=== PATIENT | female | born 1945 | race Caucasian/White ===

== ENCOUNTER 2018-12-15 10:50 | Observation (INO) | payer MEDICARE ==
[2018-12-15] MEDS ORDERED: predniSONE 20 MG TAB ONE (11:35)
[2018-12-15 11:56] LABS: #Lymphocytes 0.9 thou/uL (1.20-3.40); #Monocytes 0.5 thou/uL (0.11-0.59); #Neutrophils 7.4 thou/uL (1.40-6.50); %Basophils 0.4 % (0.0-1.0); %Lymphocytes 10.7 % (21.0-51.0); %Monocytes 5.8 % (0.0-10.0); %Neutrophils 83.2 % (42.0-75.0); Hemoglobin 9.4 g/dL (12.0-16.0); Mean Corpuscular HGB CONC 32.4 g/dL (32.0-36.0); Mean Corpuscular Hemoglobin 27.5 pg (27.0-31.0); Mean Corpuscular Volume 84.9 fL (78.0-98.0); Mean Platelet Volume 6.4 fL (7.4-10.4); Platelet Count 210 thou/uL (130-400); RBC Distribution Width 15.1 % (11.5-14.5); Red Blood Cell (RBC) Count 3.42 mill/uL (4.20-5.40); White Blood Cell (WBC) Count 8.9 thou/uL (4.8-10.8)
[2018-12-15 12:01] LABS: Anion Gap 15 mmol/L (10-20); BUN (Urea Nitrogen) 16 mg/dL (9.8-20.1); Calc. Creatinine Clearance 0 mL/min (70-130); Calcium 9.6 mg/dL (7.8-10.44); Carbon Dioxide 27 mmol/L (23-31); Chloride 94 mmol/L (98-107); Estimated GFR-MDRD 63; Glucose 158 mg/dL (83-110); Potassium 3.3 mmol/L (3.5-5.1); Sodium 133 mmol/L (136-145)
[2018-12-15 12:31] LABS: Bilirubin Small (Negative); Blood, Urine Trace (Negative); Clarity Slightly Cloudy (Clear); Glucose, Urine (Dipstick) Negative (Negative); Leukocyte Negative (Negative); Nitrite Negative (Negative); Protein, Urine (Dipstick) 100 mg/dL (Neg-Trace); pH, Urine 5.5 (5.0-9.0)
[2018-12-15 12:34] LABS: Specific Gravity, Urine 1.026 (1.002-1.036)
[2018-12-15 12:40] LABS: Bacteria/HPF 2+ HPF (None Seen); Hyaline Casts/LPF 0-3 HYALINE CAST LPF (0-3 Hyaline); Squamous Epithelial 0-3 HPF (0-3); WBC/HPF 0-3 HPF (0-3)
[2018-12-15] MEDS ORDERED: cefTRIAXone\\ROCEPHIN 1 GM VIAL ONE (12:47)
[2018-12-15] MEDS ORDERED: Sodium Chloride 0.9% 100 ML ONE (12:47)
[2018-12-15] MEDS ORDERED: Oseltamivir 75 MG CAP ONE (12:47)
--- NOTE | 2018-12-15 13:23 | RAD ---
RADIOGRAPH CHEST 2 VIEWS: Date: 12/15/2018 Time: 12:03 p.m. HISTORY: A 73-year-old female with cough. COMPARISON: 05/05/2016 FINDINGS: There is a new finding of infiltrate involving the right upper lobe, probably the anterior segment, i nvolving relatively low attenuation but a wide area. Again noted are the sternotomy wires. No cardi omegaly or pleural effusion. No pneumothorax. IMPRESSION: Evidence for right upper lobe pneumonia. CARL [] POS: STONE
[2018-12-15] MEDS ORDERED: Azithromycin 500 MG VIAL ONE (13:59)
[2018-12-15] MEDS ORDERED: Ondansetron ODT 4 MG TAB SL PRN (18:42)
[2018-12-15] MEDS ORDERED: Acetaminophen 325 MG TAB PO PRN (18:42)
[2018-12-15] MEDS ORDERED: Ondansetron PF 4 MG/2 ML Vial IVP PRN (18:42)
[2018-12-15 18:45] VITALS: BMI 30.2
--- NOTE | 2018-12-15 21:19 | PDOC.FPRHP ---
- History of Present Illness Chief Complaint: cough History of Present Illness: 73yo F with pmh of COPD and CAD presents with 3-4 day hx of worsening cough and fatigue. Denies increased SOB, denies fever/chills. Reports her children have all had the flu. She has had flu shot. Cough is productive of clear sputum. At outside ED CXR showed L upper lobe consolidation and pt tested positive for Flu A. She was given azithromycin, rocephin, prednisone and duonebs and transferred to [facility] for direct admit. ED Course: see hpi - Allergies/Adverse Reactions Allergies Allergy/AdvReac Type Severity Reaction Status Date / Time No Known Allergies Allergy Verified 12/25/16 16:00 - Home Medications Medication Instructions Recorded Confirmed Type Cetirizine HCl [Zyrtec] 10 mg PO DAILY 05/12/13 12/15/18 History Clopidogrel Bisulfate [Plavix] 75 mg PO QAM 01/03/15 12/15/18 History Aspirin [Ecotrin Regular Strength] 325 mg PO QAM 10/27/15 12/15/18 History Citalopram Hydrobromide 40 mg PO QAM 11/15/15 12/15/18 History [Citalopram HBr] Hydrochlorothiazide 25 mg PO QAM 11/15/15 12/15/18 History Atorvastatin Calcium [Lipitor] 20 mg PO HS 04/30/16 12/15/18 History Metoprolol Succinate [Toprol XL] 1 tab PO QAM 04/30/16 12/15/18 History Multivitamin With Minerals [Daily 1 tab PO QAM 04/30/16 12/15/18 History Vitamin Formula-Minerals] Acetaminophen [Acetaminophen 8 1 - 2 mg PO Q6HR 09/24/16 12/15/18 History Hour] Bimatoprost [Lumigan 0.01% Ophth 1 drop L EYE HS 09/24/16 12/15/18 History Soln] Levothyroxine Sodium [Tirosint] 125 mcg PO DAILY 09/24/16 12/15/18 History Vitamin B Complex 1 cap PO DAILY 09/24/16 12/15/18 History Acetaminophen With Codeine 1 tablet PO Q6HR PRN 12/15/18 12/15/18 History [Tylenol with Codeine #3] Carboxymethylcellulose Sodium 1 - 2 drop L EYE ASDIR PRN 12/15/18 12/15/18 History [Thera Tears] Dorzolamide/Timolol/PF [Cosopt Pf 1 each L EYE BID 12/15/18 12/15/18 History Eye Drops] Fluorometholone [FML Forte 0.25% 1 drop L EYE DAILY 12/15/18 12/15/18 History Ophth Susp] Latanoprost [Latanoprost 0.05% 1 drop L EYE HS 12/15/18 12/15/18 History Ophth] Melatonin/Pyridoxine [Melatonin 5 1 each PO HS PRN 12/15/18 12/15/18 History mg Tablet] Netarsudil Mesylate [Rhopressa] 1 drop L EYE HS 12/15/18 12/15/18 History metFORMIN [Glucophage] 500 mg PO BID-WM 12/15/18 12/15/18 History - History PMHx:CAD s/p 3 vessel CABG, hypothyroid, HTN, HLD, DM2, COPD PSHx: CABG FHx: COPD Social: 40 pack year smoking hx, social etoh use , denies drugs - Review of Systems General: reports: fatigue. denies: fever/chills Eyes: denies: eye pain, vision changes ENT: denies: nasal congestion, rhinorrhea Respiratory: reports: cough. denies: shortness of breath Cardiovascular: denies: chest pain, palpitation Gastrointestinal: denies: nausea, vomiting Genitourinary: denies: dysuria, polyuria Skin: denies: rashes, lesions Musculoskeletal: denies: pain, tenderness Neurological: denies: syncope, seizure Psychological: denies: anxiety, depression - Vital signs BP: [123/67] HR: [85] RR: [20] Tmax: [99] Pox: [93]% on [ra] Wt: [77kg] - Physical Exam Constitutional: NAD, awake, alert and oriented HEENT: normocephalic and atraumatic, EOMI, grossly normal vision, grossly normal hearing Neck: supple, trachea midline Chest: no-tender to palpation Heart: RRR, normal S1/S2 -Lungs: inspiratory and expiratory crackles at L midlung and apex, mild expiratory wheezing in R lung Abdomen: soft, non-tender Musculoskeletal: normal tone, ROM grossly normal Neurological: no focal deficit, normal sensation Skin: no rash/lesions, good turgor Heme/Lymphatic: no purpura, no petechia Psychiatric: normal mood and affect, good judgment and insight FMR H&P: Results - Labs Result Diagrams: 12/16/18 06:27 12/16/18 06:27 Lab results: WBC 8.9 thou/uL (4.8-10.8) 12/15/18 11:40 Hgb 9.4 g/dL (12.0-16.0) L 12/15/18 11:40 Hct 29.0 % (36.0-47.0) L 12/15/18 11:40 MCV 84.9 fL (78.0-98.0) 12/15/18 11:40 Plt Count 210 thou/uL (130-400) 12/15/18 11:40 Neutrophils % 83.2 % (42.0-75.0) H 12/15/18 11:40 Sodium 133 mmol/L (136-145) L 12/15/18 11:40 Potassium 3.3 mmol/L (3.5-5.1) L 12/15/18 11:40 Chloride 94 mmol/L (98-107) L 12/15/18 11:40 Carbon Dioxide 27 mmol/L (23-31) 12/15/18 11:40 BUN 16 mg/dL (9.8-20.1) 12/15/18 11:40 Creatinine 0.87 mg/dL (0.6-1.1) 12/15/18 11:40 Glucose 158 mg/dL (83-110) H 12/15/18 11:40 Lactic Acid 1.2 mmol/L (0.5-2.2) 12/15/18 11:40 Calcium 9.6 mg/dL (7.8-10.44) 12/15/18 11:40 Urine Ketones 15 mg/dL (Negative) H 12/15/18 12:20 Urine Blood Trace (Negative) H 12/15/18 12:20 Urine Nitrite Negative (Negative) 12/15/18 12:20 Ur Leukocyte Esterase Negative (Negative) 12/15/18 12:20 Urine RBC 4-6 HPF (0-3) 12/15/18 12:20 Urine WBC 0-3 HPF (0-3) 12/15/18 12:20 Ur Squamous Epith Cells 0-3 HPF (0-3) 12/15/18 12:20 Urine Bacteria 2+ HPF (None Seen) H 12/15/18 12:20 FMR H&P: A/P - Problem List (1) CAP (community acquired pneumonia) Current Visit: Yes Status: Acute Code(s): J18.9 - PNEUMONIA, UNSPECIFIED ORGANISM (2) Influenza A Current Visit: Yes Status: Acute Code(s): J10.1 - FLU DUE TO OTH IDENT INFLUENZA VIRUS W OTH RESP MANIFEST (3) CAD (coronary artery disease) Current Visit: Yes Status: Chronic Code(s): I25.10 - ATHSCL HEART DISEASE OF [place] CORONARY ARTERY W/O ANG PCTRS (4) Hypothyroid Current Visit: Yes Status: Chronic Code(s): E03.9 - HYPOTHYROIDISM, UNSPECIFIED (5) DM type 2 (diabetes mellitus, type 2) Current Visit: No Status: Chronic (6) Dyslipidemia Current Visit: No Status: Chronic Code(s): E78.5 - HYPERLIPIDEMIA, UNSPECIFIED (7) HTN (hypertension) Current Visit: No Status: Chronic Code(s): I10 - ESSENTIAL (PRIMARY) HYPERTENSION - Plan CAP A- Imaging showed evidence for L upper lobe consolidation and was consistent with exam. unlikely that this is pneumonia 2/2 influenza infection as onset of symptoms was so recent. LA 1.2 P- Azithromycin and rocephin - f/u BCx - AM CBC - PO hydration - prn O2 Influenza A pneumonia A- positive for Flu A, pt had family contacts who also had flu. She has been vaccinated P- tamiflu COPD exacerbation A- Likely that most of symptoms are due to flu and CAP but pt was mildy wheezing on exam. S/p prednisone today P- PRN duonebs - prednisone 40 mg daily - restart home medications once they are obtained CAD s/p CABG - obtain med list from family in AM and restart home meds HTN - obtain med list from family in AM and restart home meds HLD - obtain med list from family in AM and restart home meds hypothyroid - obtain med list from family in AM and restart home meds DM2 - SSI and accuchecks - obtain med list from family in AM and restart home meds Diet: HH PPx: Lovenox CODE: FULL Dispo: obs, medical FMR H&P: Upper Level - Pertinent history 73 yo WF PMH CAD and extensive smoking history without diagnosis of COPD. Presents with 2-3 day history of productive cough, generalized malaise, and generalized weakness. States she felt normal Friday but began to feel ill on Friday. States she cannot remember exactly when her symptoms started. States she had multiple family members with influenza. ER: Labs, CXR, flu swab. - Pertinent findings Vitals: WNL GEN: Ill appearing but not toxic appearing. CV: RRR, no murmur Pulm: crackles in left and right upper lungs. Skin: warm, moist Labs: influenza A positive, K 3.3 CXR: RUL infiltrate. - Plan Date/Time: 12/15/182115 I, Manpreet Nesbitt MD, have evaluated this patient and agree with findings/plan as outlined by diversity intern resident. Pertinent changes/additions are listed here. 1. Community acquired pneumonia: continue rocephin and azithromycin, PRN oxygen. 2. Influenza A pneumonia: tamiflu 3. COPD exacerbation: PRN duonebs, prednisone 40 mg daily 4. See diversity intern note for management of chronic conditions 5. Diet: HH 6. PPx: Lovenox 7. CODE: FULL Dispo: obs, medical <[address] Villeda. Addendum - Attending - Attending Attestation Date/Time: 12/16/18 1000 I personally evaluated the patient and discussed the management with Dr. Castro yesterday evening. I agree with the History, Examination, Assessment and Plan documented above with any addition or exceptions noted below.
[2018-12-16] MEDS ORDERED: HumaLOG 300 UNITS/3 ML VIAL SC PRN (02:46)
[2018-12-16] MEDS ORDERED: Dextrose 50% Abboject 50 ML SYRINGE SLOW IVP PRN (02:46)
[2018-12-16] MEDS ORDERED: Dextrose 5% in Water 1,000 ML IV PRN (02:46)
[2018-12-16 07:09] LABS: #Eosinphils 0.1 thou/uL (0.0-0.7); #Lymphocytes 0.8 thou/uL (1.20-3.40); #Monocytes 0.4 thou/uL (0.11-0.59); #Neutrophils 3.9 thou/uL (1.40-6.50); %Basophils 0.1 % (0.0-1.0); %Eosinophils 2.7 % (0.0-10.0); %Lymphocytes 14.5 % (21.0-51.0); %Monocytes 8.4 % (0.0-10.0); %Neutrophils 74.4 % (42.0-75.0); Hemoglobin 10.1 g/dL (12.0-16.0); Mean Corpuscular HGB CONC 31.5 g/dL (32.0-36.0); Mean Corpuscular Hemoglobin 27.1 pg (27.0-31.0); Mean Corpuscular Volume 86.1 fL (78.0-98.0); Mean Platelet Volume 7.3 fL (7.4-10.4); Platelet Count 243 thou/uL (130-400); RBC Distribution Width 14.7 % (11.5-14.5); Red Blood Cell (RBC) Count 3.73 mill/uL (4.20-5.40); White Blood Cell (WBC) Count 5.3 thou/uL (4.8-10.8)
[2018-12-16 07:27] LABS: Anion Gap 16 mmol/L (10-20); BUN (Urea Nitrogen) 20 mg/dL (9.8-20.1); Calc. Creatinine Clearance 74 mL/min (70-130); Calcium 9.7 mg/dL (7.8-10.44); Carbon Dioxide 27 mmol/L (23-31); Chloride 99 mmol/L (98-107); Estimated GFR-MDRD 70; Glucose 172 mg/dL (83-110); Sodium 138 mmol/L (136-145)
--- NOTE | 2018-12-16 07:59 | PDOC.FM ---
- Subjective Subjective: Seen at bedside this morning resting comfortably in no acute distress. No acute events over night. Denies SOB or chest pain. Complains of continued cough - Objective MAR Reviewed: Yes Vital Signs & Weight: Vital Signs (12 hours) Temp Pulse Resp BP BP Pulse Ox 12/16/18 07:18 97.5 F L 64 18 97/60 90 L 12/16/18 04:00 97.3 F L 66 20 104/65 98 12/16/18 00:00 97.6 F 80 20 102/63 93 L 12/15/18 22:08 85 12 95 Weight Weight 77.564 kg Result Diagrams: 12/16/18 06:27 12/16/18 06:27 Phys Exam - Physical Examination Constitutional: NAD HEENT: PERRLA, moist MMs Neck: no JVD RUL crackles, otherwise CTA Cardiovascular: RRR, no significant murmur Gastrointestinal: soft, non-tender, no distention Musculoskeletal: no edema Neurological: moves all 4 limbs Psychiatric: normal affect, A&O x 3 Skin: no rash Dx/Plan (1) CAP (community acquired pneumonia) Code(s): J18.9 - PNEUMONIA, UNSPECIFIED ORGANISM Status: Acute (2) Influenza A Code(s): J10.1 - FLU DUE TO OTH IDENT INFLUENZA VIRUS W OTH RESP MANIFEST Status: Acute (3) Normocytic anemia Code(s): D64.9 - ANEMIA, UNSPECIFIED Status: Chronic (4) CAD (coronary artery disease) Code(s): I25.10 - ATHSCL HEART DISEASE OF [place] CORONARY ARTERY W/O ANG PCTRS Status: Chronic (5) Hypothyroid Code(s): E03.9 - HYPOTHYROIDISM, UNSPECIFIED Status: Chronic (6) DM type 2 (diabetes mellitus, type 2) Status: Chronic (7) Dyslipidemia Code(s): E78.5 - HYPERLIPIDEMIA, UNSPECIFIED Status: Chronic (8) HTN (hypertension) Code(s): I10 - ESSENTIAL (PRIMARY) HYPERTENSION Status: Chronic - Plan Plan: CAP - Continue Rocephin and Azithromycin, not currently requiring supplemental O2 - Cultures pending - labs stable Influenza A pneumonia -continue Tamiflu -Motrin/Tylenol PRN fever COPD exacerbation -Possible dx, however there is no wheezing on exam and pt has no increased O2 demand -s/p steroids yesterday, will continue here CAD s/p CABG - Home asa and statin HTN - controlled. Restart home meds HLD - home meds hypothyroid - home meds DM2 - SSI and accuchecks - obtain med list from family in AM and restart home meds Glaucoma - home eye drops Dispo: pt is stable and doing well, will obs today and consider dc in afternoon or tomorrow morning Addendum - Attending - Attending Attestation Date/Time: 12/16/18 0909 I personally evaluated the patient and discussed the management with Dr. Rodarte I agree with the History, Examination, Assessment and Plan documented above with any addition or exceptions noted below- Patient without complaints. States that she is still having the cough and it is more productive. Afebrile VSS. A/P : 1) Influenza A - continue tamiflu. 2) CAP - Continue rocephin and zithromax. Will add neb treatments scheduled. 3) Hypothyroid- continue home med. 4) COPD - start nebs
[2018-12-16] MEDS ORDERED: Potassium Chloride 20 MEQ TAB PO SCH (08:00)
[2018-12-16] MEDS ORDERED: PYRIDOXINE PO PRN (08:11)
[2018-12-16] MEDS ORDERED: CARBOXYMETHYLCELLULOSE SODIUM L EYE PRN (08:11)
[2018-12-16] MEDS ORDERED: MELATONIN PO PRN (08:11)
[2018-12-16] MEDS: predniSONE 20 MG TAB PO SCH (08:12)
[2018-12-16] MEDS: Benzonatate 100 MG CAP PO PRN (08:12)
[2018-12-16] MEDS: Enoxaparin Sodium 40 MG/0.4 ML SYRINGE SC SCH (08:13)
[2018-12-16] MEDS: Oseltamivir 75 MG CAP PO SCH ×2 (08:13→20:34)
[2018-12-16] MEDS ORDERED: Artificial Tear Sol 15 ML BOT EA EYE PRN (08:49)
[2018-12-16] MEDS ORDERED: FLUOROMETHOLONE L EYE SCH (09:00)
[2018-12-16] MEDS ORDERED: DORZOLAMIDE L EYE SCH (09:00)
[2018-12-16] MEDS ORDERED: Non-Formulary Item 1 EACH (Cetirizine Hcl [Zyrtec] 10 MG) PO SCH (09:00)
[2018-12-16] MEDS ORDERED: VITAMIN B COMPLEX PO SCH (09:00)
[2018-12-16] MEDS ORDERED: LEVOTHYROXINE SODIUM 125 MCG PO SCH (09:00)
[2018-12-16] MEDS ORDERED: TIMOLOL L EYE SCH (09:00)
[2018-12-16] MEDS: Multivitamin W/ Minerals 1 TAB PO SCH (09:07)
[2018-12-16] MEDS: Loratadine 10 MG TAB PO SCH (09:07)
[2018-12-16] MEDS: Citalopram 20 MG TAB PO SCH (09:08)
[2018-12-16] MEDS: Clopidogrel Bisulfate 75 MG TAB PO SCH (09:08)
[2018-12-16] MEDS: Hydrochlorothiazide 25 MG TAB PO SCH (09:08)
[2018-12-16] MEDS: Aspirin 325 mg Enteric Coated Tablet PO SCH (09:09)
[2018-12-16] MEDS: DorzolamidE/Timolol 2%/0.5% Ophth Soln 10 ml Bottle L EYE SCH ×2 (11:48→20:36)
[2018-12-16] MEDS: Azithromycin 250 MG in Sodium Chloride 0.9% 250 ML 250 ML IVPB SCH (15:18)
[2018-12-16] MEDS: Stress 600 With Zinc 1 TAB PO SCH (15:18)
[2018-12-16] MEDS: cefTRIAXone\\ROCEPHIN 1 GM in Sodium Chloride 0.9% 100 ML IVPB SCH (15:19)
[2018-12-16] MEDS: metFORMIN 500 MG TAB PO SCH (15:20)
[2018-12-16] MEDS ORDERED: Non-Formulary Item 1 EACH (Bimatoprost [Lumigan 0.01% Ophth Soln] 1 DROP) L EYE SCH (21:00)
[2018-12-16] MEDS ORDERED: Latanoprost 0.005% Ophth Soln 2.5 ml Bottle L EYE SCH ×2 (21:00)
[2018-12-16] MEDS ORDERED: MELATONIN 5 MG PO SCH (21:00)
[2018-12-16] MEDS ORDERED: NETARSUDIL MESYLATE L EYE SCH ×2 (21:00)
[2018-12-16] MEDS ORDERED: Atorvastatin Calcium 20 MG TAB PO SCH (21:00)
[2018-12-17] MEDS: Benzonatate 100 MG CAP PO PRN (04:29)
[2018-12-17] MEDS ORDERED: Levothyroxine Sodium 125 MCG TAB PO SCH (06:00)
[2018-12-17 07:02] VITALS: BP 106/65; TEMP 98
--- NOTE | 2018-12-17 07:10 | PDOC.FM ---
- Subjective Subjective: Seen at bedside this morning resting comfortably, No acute events over night. No new complaints. Denies SOB, worsening cough, or chest pain. - Objective MAR Reviewed: Yes Vital Signs & Weight: Vital Signs (12 hours) Temp Pulse Resp BP Pulse Ox 12/17/18 07:01 98.0 F 55 L 18 106/65 91 L 12/17/18 04:30 97.9 F 59 L 16 119/71 95 12/17/18 00:32 97.8 F 56 L 16 134/67 92 L 12/16/18 19:22 97.9 F 91 16 118/66 97 Weight Admit Weight 77.564 kg Weight 77.564 kg Result Diagrams: 12/16/18 06:27 12/16/18 06:27 Phys Exam - Physical Examination Constitutional: NAD HEENT: moist MMs Neck: full ROM Respiratory: clear to auscultation bilateral Cardiovascular: RRR, no significant murmur Gastrointestinal: soft, non-tender, no distention Musculoskeletal: no edema Neurological: moves all 4 limbs Psychiatric: normal affect, A&O x 3 Skin: no rash Dx/Plan (1) CAP (community acquired pneumonia) Code(s): J18.9 - PNEUMONIA, UNSPECIFIED ORGANISM Status: Acute (2) Influenza A Code(s): J10.1 - FLU DUE TO OTH IDENT INFLUENZA VIRUS W OTH RESP MANIFEST Status: Acute (3) Normocytic anemia Code(s): D64.9 - ANEMIA, UNSPECIFIED Status: Chronic (4) CAD (coronary artery disease) Code(s): I25.10 - ATHSCL HEART DISEASE OF [place] CORONARY ARTERY W/O ANG PCTRS Status: Chronic (5) Hypothyroid Code(s): E03.9 - HYPOTHYROIDISM, UNSPECIFIED Status: Chronic (6) DM type 2 (diabetes mellitus, type 2) Status: Chronic (7) Dyslipidemia Code(s): E78.5 - HYPERLIPIDEMIA, UNSPECIFIED Status: Chronic (8) HTN (hypertension) Code(s): I10 - ESSENTIAL (PRIMARY) HYPERTENSION Status: Chronic - Plan Plan: CAP - Continue Rocephin and Azithromycin. Day 3 of abx today. - no increased O2 demand - Cultures negative thus far Influenza A pneumonia -continue Tamiflu -Motrin/Tylenol PRN fever COPD exacerbation, resolved CAD s/p CABG - Home asa and statin HTN - controlled. Restart home meds HLD - home meds hypothyroid - home meds DM2 - SSI and accuchecks - restart home meds - glucose has been elevated, but pt has been refusing SSI. This is likely dt steroids. Recommend fu with PCP in 1-2 weeks to check glucose control Glaucoma - home eye drops Dispo: dc home today after 3rd dose of Rocephin with Azithro for 2 more days Addendum - Attending - Attending Attestation Date/Time: 12/17/18 1002 I personally evaluated the patient and discussed the management with Dr. Rodarte I agree with the History, Examination, Assessment and Plan documented above with any addition or exceptions noted below- Patient without complaints except felt dizzy earlier this mrning and then felt nauseated. Thinks she may have stood up to fast. Afebrile VSS. A/P: 1) Influenza A - continue tamiflu. 2) CAP- improved; continue azithromycin. Probable discharge later today.
[2018-12-17] MEDS: Stress 600 With Zinc 1 TAB PO SCH (08:58)
[2018-12-17] MEDS: Oseltamivir 75 MG CAP PO SCH (08:58)
[2018-12-17] MEDS: Citalopram 20 MG TAB PO SCH (08:59)
[2018-12-17] MEDS: predniSONE 20 MG TAB PO SCH (08:59)
[2018-12-17] MEDS: Loratadine 10 MG TAB PO SCH (09:00)
[2018-12-17] MEDS: Clopidogrel Bisulfate 75 MG TAB PO SCH (09:00)
[2018-12-17] MEDS: Enoxaparin Sodium 40 MG/0.4 ML SYRINGE SC SCH (09:00)
[2018-12-17] MEDS: Aspirin 325 mg Enteric Coated Tablet PO SCH (09:00)
[2018-12-17] MEDS ORDERED: FML FORTE 0.25% L EYE SCH (09:00)
[2018-12-17] MEDS: Hydrochlorothiazide 25 MG TAB PO SCH (09:00)
[2018-12-17] MEDS: Multivitamin W/ Minerals 1 TAB PO SCH (09:01)
[2018-12-17] MEDS: metFORMIN 500 MG TAB PO SCH ×2 (09:01→16:40)
[2018-12-17] MEDS: DorzolamidE/Timolol 2%/0.5% Ophth Soln 10 ml Bottle L EYE SCH (09:04)
[2018-12-17] MEDS ORDERED: Melatonin 3 MG TAB PO PRN (14:53)
[2018-12-17] MEDS: Azithromycin 250 MG in Sodium Chloride 0.9% 250 ML 250 ML IVPB SCH (15:13)
[2018-12-17] MEDS: cefTRIAXone\\ROCEPHIN 1 GM in Sodium Chloride 0.9% 100 ML IVPB SCH (16:40)
[2018-12-18] MEDS ORDERED: Azithromycin 250 MG TAB PO SCH (09:00)
== END 2018-12-17 18:23 | disposition home or self-care (01) ==
LOC: SCSER 10:50 → T4-A 13:30
PROVIDERS: ADMIT Emergency Medicine; ATTEND Emergency Medicine
DX: J09.X2 Influenza due to identified novel influenza A virus with other respiratory manifestations (principal); J18.9 Pneumonia, unspecified organism; J44.1 Chronic obstructive pulmonary disease with (acute) exacerbation; I25.10 Atherosclerotic heart disease of native coronary artery without angina pectoris; I10 Essential (primary) hypertension; E03.9 Hypothyroidism, unspecified; E78.5 Hyperlipidemia, unspecified; E11.9 Type 2 diabetes mellitus without complications; F17.210 Nicotine dependence, cigarettes, uncomplicated; D64.9 Anemia, unspecified; H40.9 Unspecified glaucoma; Z95.1 Presence of aortocoronary bypass graft; Z79.84 Long term (current) use of oral hypoglycemic drugs; Z79.82 Long term (current) use of aspirin; Z79.02 Long term (current) use of antithrombotics/antiplatelets; Z79.2 Long term (current) use of antibiotics; Z79.899 Other long term (current) drug therapy
CPT/HCPCS: 71046; 80048 ×2; 82962 ×3; 83605; 85025 ×2; 87040; 87086; 87804 ×2; 94640; 96365; 96367; 96372 ×2; 96376 ×2; 99284; G0378 ×2; 36415; 36416; 81003; 81015; J0456; J0696; J1650; J7050; J7620

== ENCOUNTER 2019-11-19 05:26 | Outpatient (CLI) | payer MEDICARE ==
[2019-11-19 13:02] LABS: Hemoglobin 11.5 g/dL (12.0-16.0); Mean Corpuscular HGB CONC 32.7 g/dL (32.0-36.0); Mean Corpuscular Hemoglobin 28.8 pg (27.0-31.0); Platelet Count 242 thou/uL (130-400); RBC Distribution Width 15.8 % (11.5-14.5); Red Blood Cell (RBC) Count 4.01 mill/uL (4.20-5.40); White Blood Cell (WBC) Count 10.1 thou/uL (4.8-10.8)
[2019-11-19 13:25] LABS: Anion Gap 16 mmol/L (10-20); BUN (Urea Nitrogen) 14 mg/dL (9.8-20.1); Calc. Creatinine Clearance 0 mL/min (70-130); Calcium 9.5 mg/dL (7.8-10.44); Carbon Dioxide 27 mmol/L (23-31); Chloride 100 mmol/L (98-107); Estimated GFR-MDRD 72; Glucose 175 mg/dL (83-110); Sodium 139 mmol/L (136-145)
== END 2019-11-19 05:27 | disposition home or self-care (01) ==
LOC: LABBT 05:26
PROVIDERS: ATTEND Thoracic Surgery (Cardiothoracic Vascular Surgery)
DX: Z01.818 Encounter for other preprocedural examination (principal); I73.9 Peripheral vascular disease, unspecified
CPT/HCPCS: 80048; 85027; 86850; 86900; 86901; 93005; 93010

== ENCOUNTER 2019-11-19 12:00 | Inpatient (IN) | payer MEDICARE ==
[2019-11-22] MEDS ORDERED: Iothalamate Meglumine 60% 50 ML VIAL FS ONE (06:30)
[2019-11-22] MEDS ORDERED: Heparin 5,000 UNITS/ML VIAL ONE (06:30)
[2019-11-22] MEDS ORDERED: Protamine Sulfate 50 MG/5 ML VIAL ONE (06:30)
[2019-11-22] MEDS ORDERED: EPINEPHrine 1 MG/ML AMP ONE (06:54)
[2019-11-22] MEDS ORDERED: Bupivacaine PF 0.5% 30 ML VIAL ONE ×2 (06:54→09:13)
[2019-11-22] MEDS ORDERED: Fentanyl 250 MCG/5 ML VIAL ONE (06:57)
[2019-11-22] MEDS ORDERED: Midazolam HCl 2 mg/2 ml Vial ONE (07:02)
--- NOTE | 2019-11-22 11:00 | OP ---
DATE OF PROCEDURE: 11/22/2019 PREOPERATIVE DIAGNOSIS: Peripheral vascular disease. POSTOPERATIVE DIAGNOSIS: Peripheral vascular disease. PROCEDURES PERFORMED: 1. Left femoral artery cutdown. 2. Left external iliac angiogram. 3. Left common iliac artery primary stenting with an 8 x 57 Express LD taken to 10 mmHg. 4. Left external iliac/common femoral artery endarterectomy with patch angioplasty. ANESTHESIA: General endotracheal. ESTIMATED BLOOD LOSS: Less than 100. CONTRAST: 50 mL. FLUORO TIME: 5 minutes and 12 seconds. DESCRIPTION OF PROCEDURE: After consent was obtained, the patient was brought to the operating room and placed in supine position on the operating room table. Appropriate central line and monitors were placed and general endotracheal anesthesia was induced. The left leg was prepped and draped in usual sterile fashion. Skin incision was made over the groin and dissection down the common femoral artery obtained with the electrocautery. Sharp dissection was used to expose the external iliac under the inguinal ligament, common femoral, profunda femoris, and superficial femoral arteries. The patient was systemically heparinized. A 5-[place] sheath and Bentson guidewire were then placed through the common femoral artery. An angled Berenstein catheter was used to guide the guidewire through the external iliac artery. The sheath was exchanged for 6-[place] Marker sheath. Hand-injected arteriogram was performed, illuminating the iliac architecture. The common iliac near occlusion was traversed with the angled [place] and Bentson guidewire. Once we were into the aorta, with the wire, the angled Berenstein catheter was guided into the aorta. Hand-injected arteriogram was performed confirming intraluminal location. The guidewire was replaced. The 6-[place] Marker sheath was replaced with a 7-[place] Marker sheath. An 8 x 57 stent was selected and deployed. Followup angiogram showed an excellent result. The guidewires and sheath were removed. The external iliac, superficial femoral, and profunda femoris arteries were clamped. An incision was made on the common femoral artery and extended up proximal to the plaque on the external iliac artery and extended down onto the superficial femoral artery origin. Endarterectomy was performed. Medial fibers were debrided. Artery was flushed with heparinized saline. Bovine pericardial patch was sewn in place with running 5-0 Prolene suture. Antegrade flow was reestablished up the profunda followed by the superficial femoral. Hemostasis was ensured both with 6-0 Prolene suture and manual pressure. Protamine was administered. After adequate hemostasis had been obtained, wounds were copiously irrigated. Wound was infiltrated with 0.5% Marcaine. Wounds were then closed in multiple layers and Dermabond applied to skin. The patient tolerated the procedure well, was awakened, extubated, and transferred to the recovery room in stable condition. Job ID: [id number]
[2019-11-22] MEDS ORDERED: Vecuronium 10 MG VIAL ONE (14:44)
[2019-11-22] MEDS ORDERED: Lidocaine 1% PF 5 ML VIAL ONE (14:44)
[2019-11-22] MEDS ORDERED: Ondansetron PF 4 MG/2 ML Vial ONE (14:44)
[2019-11-22] MEDS ORDERED: Glycopyrrolate 0.2 MG/ML 5 ML SYRINGE ONE (14:44)
[2019-11-22] MEDS ORDERED: PROPOFOL 200 MG/20 ML VIAL ONE (14:44)
[2019-11-22] MEDS ORDERED: PHENYLEPHRINE-NS 100 MCG/ML 10 ML SYRINGE ONE (14:44)
[2019-11-22] MEDS ORDERED: Dexamethasone 20 MG/5 ML VIAL ONE (14:44)
[2019-11-22] MEDS ORDERED: hydrALAZINE 20 MG/ML VIAL SLOW IVP PRN (15:40)
[2019-11-22] MEDS ORDERED: Fentanyl 100 MCG/2 ML VIAL SLOW IVP PRN ×2 (15:40)
[2019-11-22] MEDS ORDERED: Ondansetron PF 4 MG/2 ML Vial IVP PRN (15:40)
[2019-11-22] MEDS ORDERED: Promethazine HCl 25 MG/ML VIAL PR PRN (15:40)
[2019-11-22] MEDS ORDERED: Promethazine HCl 25 MG/ML VIAL IM PRN (15:40)
[2019-11-22] MEDS ORDERED: Acetaminophen 325 MG TAB PO PRN (15:40)
[2019-11-22] MEDS ORDERED: REFRESH PLUS (Carboxymethylcellulose 0.5%) Opth Drops L EYE PRN (16:30)
[2019-11-22] MEDS ORDERED: PYRIDOXINE PO PRN (16:30)
[2019-11-22] MEDS ORDERED: MELATONIN PO PRN (16:30)
[2019-11-22] MEDS: traMADol HCl 50 MG TAB PO PRN ×2 (16:49→23:47)
[2019-11-22] MEDS: Sodium Chloride 0.9% 1,000 ML IV SCH (16:51)
[2019-11-22] MEDS: CEFAZOLIN 2 GM in Premix Bag 1 BAG IVPB SCH ×2 (16:53→23:49)
[2019-11-22 17:04] VITALS: BMI 29.5
[2019-11-22 17:55] LABS: Glucose 318 mg/dL (83-110)
[2019-11-22] MEDS: Insulin Regular 300 UNITS/3 ML VIAL SC PRN ×2 (18:02→23:50)
[2019-11-22] MEDS: DorzolamidE/Timolol 2%/0.5% Ophth Soln 10 ml Bottle EA EYE SCH (20:14)
[2019-11-22] MEDS ORDERED: NETARSUDIL MESYLATE 0.02% L EYE SCH (21:00)
[2019-11-22] MEDS ORDERED: BIMATOPROST L EYE SCH (21:00)
[2019-11-22] MEDS ORDERED: Latanoprost 0.005% Ophth Soln 2.5 ml Bottle L EYE SCH (21:00)
[2019-11-22] MEDS ORDERED: Atorvastatin Calcium 20 MG TAB PO SCH (21:00)
[2019-11-22 21:56] LABS: Glucose 416 mg/dL (83-110)
[2019-11-23] MEDS ORDERED: Levothyroxine Sodium 125 MCG TAB PO SCH (06:00)
[2019-11-23 07:45] VITALS: TEMP 97.5
[2019-11-23] MEDS ORDERED: FLUOROMETHOLONE L EYE SCH (09:00)
[2019-11-23] MEDS ORDERED: Aspirin 81 mg Enteric Coated Tablet PO SCH (09:00)
[2019-11-23] MEDS ORDERED: Loratadine 10 MG TAB PO SCH (09:00)
[2019-11-23] MEDS ORDERED: Multivitamin W/ Minerals 1 TAB PO SCH (09:00)
[2019-11-23] MEDS ORDERED: Hydrochlorothiazide 25 MG TAB PO SCH (09:00)
[2019-11-23] MEDS ORDERED: Stress 600 With Zinc 1 TAB PO SCH (09:00)
[2019-11-23] MEDS ORDERED: Citalopram 20 MG TAB PO SCH (09:00)
[2019-11-23] MEDS: CEFAZOLIN 2 GM in Premix Bag 1 BAG IVPB SCH (09:41)
[2019-11-23] MEDS: DorzolamidE/Timolol 2%/0.5% Ophth Soln 10 ml Bottle EA EYE SCH (09:42)
[2019-11-23 10:36] VITALS: BP 148/67
[2019-11-23] MEDS: Sodium Chloride 0.9% 1,000 ML IV SCH (13:03)
--- NOTE | 2019-11-24 02:22 | DIS ---
DATE OF ADMISSION: 11/22/2019 DATE OF DISCHARGE: 11/23/2019 DIAGNOSIS: Peripheral vascular disease. PROCEDURES: Left iliofemoral endarterectomy with patch angioplasty, left common iliac primary stenting with an 8 x 57 Express LD balloon expandable stent. DESCRIPTION OF HOSPITAL STAY: Ms. Paul was admitted for the above procedure. She has done well postoperatively. She has a palpable pedal pulse on the left. The incision is clean and dry. DISCHARGE MEDICATIONS: Unchanged from her admission. FOLLOWUP: She will be followed up in 2 weeks. Job ID: [id number]
== END 2019-11-23 13:04 | disposition home or self-care (01) | DRG 271 ==
LOC: SURG A 11-22 06:12 → 2NO 11-22 15:22 → EDSTATUS 11-26 12:00
PROVIDERS: ADMIT Thoracic Surgery (Cardiothoracic Vascular Surgery); ATTEND Thoracic Surgery (Cardiothoracic Vascular Surgery)
PROC: 04CJ0ZZ Extirpation of Matter from Left External Iliac Artery, Open Approach (ICD-10-PCS; principal; 2019-11-22)
PROC: 04CL0ZZ Extirpation of Matter from Left Femoral Artery, Open Approach (ICD-10-PCS; 2019-11-22)
PROC: 04UD0JZ Supplement Left Common Iliac Artery with Synthetic Substitute, Open Approach (ICD-10-PCS; 2019-11-22)
PROC: 04UL0KZ Supplement Left Femoral Artery with Nonautologous Tissue Substitute, Open Approach (ICD-10-PCS; 2019-11-22)
PROC: 047D3DZ Dilation of Left Common Iliac Artery with Intraluminal Device, Percutaneous Approach (ICD-10-PCS; 2019-11-22)
DX: E10.51 Type 1 diabetes mellitus with diabetic peripheral angiopathy without gangrene (principal); K55.1 Chronic vascular disorders of intestine; I70.212 Atherosclerosis of native arteries of extremities with intermittent claudication, left leg; I10 Essential (primary) hypertension; I25.10 Atherosclerotic heart disease of native coronary artery without angina pectoris; D64.9 Anemia, unspecified; J30.2 Other seasonal allergic rhinitis; H40.9 Unspecified glaucoma; H26.9 Unspecified cataract; E03.9 Hypothyroidism, unspecified; M19.90 Unspecified osteoarthritis, unspecified site; I77.1 Stricture of artery; E78.2 Mixed hyperlipidemia; E66.9 Obesity, unspecified; F41.9 Anxiety disorder, unspecified; J43.8 Other emphysema; Z95.1 Presence of aortocoronary bypass graft; Z87.891 Personal history of nicotine dependence; Z79.899 Other long term (current) drug therapy; Z79.82 Long term (current) use of aspirin; Z79.51 Long term (current) use of inhaled steroids; Z79.84 Long term (current) use of oral hypoglycemic drugs; Z79.890 Hormone replacement therapy; Z90.49 Acquired absence of other specified parts of digestive tract; Z68.29 Body mass index [BMI] 29.0-29.9, adult
CPT/HCPCS: 36415; 76000; 80048; 82947; 85027; 86850; 86900; 86901; 93005; C1874; J0171; J0690; J1100; J1642; J1644; J1815; J2001; J2250; J2405; J2704; J2720; J3010; J7620; S0020

== ENCOUNTER 2020-03-10 14:48 | Inpatient (IN) | payer MEDICARE, OTHER ==
[2020-03-10 15:16] LABS: #Basophils 0.1 thou/uL (0.0-0.2); #Eosinphils 0.2 thou/uL (0.0-0.7); #Lymphocytes 3.3 thou/uL (1.20-3.40); #Monocytes 0.6 thou/uL (0.11-0.59); #Neutrophils 5.8 thou/uL (1.40-6.50); %Basophils 0.9 % (0.0-1.0); %Monocytes 5.9 % (0.0-10.0); %Neutrophils 58.1 % (42.0-75.0); Hemoglobin 10.9 g/dL (12.0-16.0); Mean Corpuscular HGB CONC 31.5 g/dL (32.0-36.0); Mean Corpuscular Hemoglobin 26.7 pg (27.0-31.0); Mean Corpuscular Volume 84.7 fL (78.0-98.0); Mean Platelet Volume 7.2 fL (7.4-10.4); Platelet Count 258 thou/uL (130-400); RBC Distribution Width 15.4 % (11.5-14.5); Red Blood Cell (RBC) Count 4.09 mill/uL (4.20-5.40)
[2020-03-10 15:40] LABS: ALT (SGPT) 10 U/L (8-55); AST (SGOT) 21 U/L (5-34); Albumin 4.1 g/dL (3.4-4.8); Alkaline Phosphatase 54 U/L (40-110); Anion Gap 17 mmol/L (10-20); BUN (Urea Nitrogen) 20 mg/dL (9.8-20.1); Bilirubin, Total 0.3 mg/dL (0.2-1.2); CK (CPK) 46 U/L (29-168); Calc. Creatinine Clearance 0 mL/min (70-130); Calcium 9.7 mg/dL (7.8-10.44); Carbon Dioxide 23 mmol/L (23-31); Chloride 101 mmol/L (98-107); Estimated GFR-MDRD 43; Globulin 3.7 g/dL (2.4-3.5); Glucose 130 mg/dL (83-110); Lipase 32 U/L (8-78); Potassium 4.7 mmol/L (3.5-5.1); Protein, Total 7.8 g/dL (6.0-8.3); Sodium 136 mmol/L (136-145)
--- NOTE | 2020-03-10 17:02 | RAD ---
PORTABLE CHEST ONE VIEW: 03/10/20 at 3:21 p.m. HISTORY: Palpitations. COMPARISON: 09/18/19 Changes of median sternotomy again seen. The heart size is normal. The aorta is tortuous. The lungs a re expanded with stable chronic changes. No lobar consolidation, pneumothoraces or pleural effusions are seen. IMPRESSION: No acute process. POS: [facility]
--- NOTE | 2020-03-10 17:54 | PDOC.FPRHP ---
- History of Present Illness Chief Complaint: dizziness History of Present Illness: 74 y/o F with pmhx of Hypothyroidism, CAD s/p X3 vessel CABG, DM II, HTN, and HLD presents to the ED after felling dizzy when standing starting "Earlier this week." She has never had these symptoms before. Pt states the dizziness is worsened by standing quickly. Pt states she drinks 2 cups of coffee in the AM and then only takes sips of water very infrequently. Jimi syncope, CP, swelling, fevers, chills or night sweats. States she has a chronic cough from copd with mild mucus production that is at her baseline. c/o generalized weakness. - Allergies/Adverse Reactions Allergies Allergy/AdvReac Type Severity Reaction Status Date / Time No Known Allergies Allergy Verified 03/10/20 20:11 - Home Medications Medication Instructions Recorded Confirmed Type Clopidogrel Bisulfate [Plavix] 75 mg PO QAM 01/03/15 03/10/20 History Citalopram Hydrobromide 40 mg PO QAM 11/15/15 03/10/20 History [Citalopram HBr] Hydrochlorothiazide 25 mg PO QAM 11/15/15 03/10/20 History Atorvastatin Calcium [Lipitor] 20 mg PO HS 04/30/16 03/10/20 History Metoprolol Succinate [Toprol XL] 1 tab PO QAM 04/30/16 03/10/20 History Multivitamin With Minerals [Daily 1 tab PO QAM 04/30/16 03/10/20 History Vitamin Formula-Minerals] Levothyroxine Sodium [Tirosint] 125 mcg PO DAILY 09/24/16 03/10/20 History Latanoprost [Latanoprost 0.05% 1 drop L EYE HS 12/15/18 03/10/20 History Ophth] metFORMIN [Glucophage] 500 mg PO DAILY 12/15/18 03/10/20 History Aspirin [Aspir-Low] 81 mg PO DAILY 11/19/19 03/10/20 History guaiFENesin [Mucinex] 1,200 mg PO BID PRN 03/10/20 03/10/20 History - History PMHx: DM II, hypothyroidism, CAD, HTN, HLD PSHx: CABG X3 vessel, rib surgery R side, L femoral artery PAD sx last year, B hand sx, B carotid endartectomy, appendectomy FHx: Sister: breast cancer Social: quit smoking 15 years ago, 25 pack year. occasional etoh use, denies drug use. - Review of Systems General: reports: fatigue. denies: fever/chills, night sweats Eyes: denies: eye pain ENT: denies: nasal congestion Respiratory: reports: cough, shortness of breath, exercise intolerance. denies : congestion Cardiovascular: reports: palpitation. denies: chest pain, edema, paroxysmal nocturnal dyspnea, orthopnea Gastrointestinal: denies: nausea, vomiting, diarrhea, abdominal pain Genitourinary: denies: incontinence, dysuria Skin: denies: rashes, lesions Musculoskeletal: denies: pain, swelling Neurological: reports: weakness (generalized). denies: numbness, syncope - Vital signs BP: 128/54 HR: 62 RR: 18 Tmax: 97.8 Pox: 98% on ra Wt: 76 kg - Physical Exam Constitutional: NAD, awake, alert and oriented, well developed HEENT: normocephalic and atraumatic, PERRLA, EOMI, conjunctiva clear, no scleral icterus, grossly normal hearing -HEENT: dry MM conjunctival pallor Neck: supple, FROM, trachea midline, no LAD, no JVD Chest: no-tender to palpation Heart: no murmurs/rubs/gallops, pulses present, no edema -Heart: Bradycardic, rate 57 Lungs: CTAB, no respiratory distress, good air movement, no rales/rhonchi, no wheezing, no retractions Abdomen: soft, non-tender, bowel sounds present Musculoskeletal: normal structure, normal tone, ROM grossly normal Neurological: no focal deficit, CN II-XII intact, normal sensation Skin: no rash/lesions, good turgor Heme/Lymphatic: no unusual bruising or bleeding, no purpura, no petechia Psychiatric: normal mood and affect, good judgment and insight, intact recent and remote memory FMR H&P: Results - Labs Result Diagrams: 03/11/20 04:48 03/11/20 04:48 Lab results: WBC 10.0 thou/uL (4.8-10.8) 03/10/20 15:07 Hgb 10.9 g/dL (12.0-16.0) L 03/10/20 15:07 Hct 34.7 % (36.0-47.0) L 03/10/20 15:07 MCV 84.7 fL (78.0-98.0) 03/10/20 15:07 Plt Count 258 thou/uL (130-400) 03/10/20 15:07 Neutrophils % 58.1 % (42.0-75.0) 03/10/20 15:07 Sodium 136 mmol/L (136-145) 03/10/20 15:07 Potassium 4.7 mmol/L (3.5-5.1) 03/10/20 15:07 Chloride 101 mmol/L (98-107) 03/10/20 15:07 Carbon Dioxide 23 mmol/L (23-31) 03/10/20 15:07 BUN 20 mg/dL (9.8-20.1) 03/10/20 15:07 Creatinine 1.21 mg/dL (0.6-1.1) H 03/10/20 15:07 Glucose 130 mg/dL (83-110) H 03/10/20 15:07 Calcium 9.7 mg/dL (7.8-10.44) 03/10/20 15:07 Total Bilirubin 0.3 mg/dL (0.2-1.2) 03/10/20 15:07 AST 21 U/L (5-34) 03/10/20 15:07 ALT 10 U/L (8-55) 03/10/20 15:07 Alkaline Phosphatase 54 U/L (40-110) 03/10/20 15:07 Creatine Kinase 46 U/L (29-168) 03/10/20 15:07 Serum Total Protein 7.8 g/dL (6.0-8.3) 03/10/20 15:07 Albumin 4.1 g/dL (3.4-4.8) 03/10/20 15:07 Lipase 32 U/L (8-78) 03/10/20 15:07 - Radiology Interpretation Chest x-ray Status: report reviewed by me (no acute findings) FMR H&P: A/P - Problem List (1) Symptomatic bradycardia Current Visit: Yes Status: Acute Code(s): R00.1 - BRADYCARDIA, UNSPECIFIED (2) CAD (coronary artery disease) Current Visit: No Status: Chronic Code(s): I25.10 - ATHSCL HEART DISEASE OF [place] CORONARY ARTERY W/O ANG PCTRS (3) DM type 2 (diabetes mellitus, type 2) Current Visit: Yes Status: Chronic (4) Dyslipidemia Current Visit: Yes Status: Chronic Code(s): E78.5 - HYPERLIPIDEMIA, UNSPECIFIED (5) HTN (hypertension) Current Visit: Yes Status: Chronic Code(s): I10 - ESSENTIAL (PRIMARY) HYPERTENSION (6) Hypothyroid Current Visit: Yes Status: Chronic Code(s): E03.9 - HYPOTHYROIDISM, UNSPECIFIED - Plan 74 y/o F admitted for further evaluation and treatment of symptomatic bradycardia 1. Symptomatic Bradycardia - Hold bb - Cards consult in AM, Appreciate recommendations. Pt see Dr. Clements - Ordered othostatics as there may be an orthostatic hypotension component with worsening dizziness on standing. - Ordered TSH, Mag, and phos 2. Hx of HTN - Hold BB - d/c HCTZ due to low fluid PO intake and start a low dose ARB 3. Extensive arterial disease with Hx of CAD, PAD and Carotid artery stenosis - continue ASA, Plavix and statin therapy. - Prior CABG, X3 vessels and L femoral artery PAD sx last year. 4. Hx of Hypothyroidism - checked TSH, T3, T4 - continue home levothyroxine dose 5. Hx of COPD - Pt at respiratory baseline. - No exacerbation, continue home albuterol 6. Type II DM - continue metformin and invokana - ordered A1C 7. MDD - continue home citlaopram. Code status: full code diet: HH DVT ppx: Lovenox Dispo: stable, admit to tele obs for symptomatic bradycardia and card consult. FMR H&P: Upper Level - Plan Date/Time: 03/10/20 1098 I, Hayden Dow MD, have evaluated this patient and agree with findings/ plan as outlined by culinary internship resident. Pertinent changes/additions are listed here. Symptomatic Bradycardia - Hold BB - Cardiology consult in AM CAD - Previous CABG - Continue current regimen All other chronic conditions reviewed and medications to be restarted as appropriate. PCP: LEONEL Francisco CODE STATUS: FULL CODE Disposition: Stable, will admit for Cardiology consultation in AM. Addendum - Attending - Attending Attestation Date/Time: 03/11/20 6120 I personally evaluated the patient and discussed the management with Dr. Obrien. I agree with the History, Examination, Assessment and Plan documented above with any addition or exceptions noted below.
[2020-03-10] MEDS ORDERED: Ondansetron ODT 4 MG TAB PO PRN (18:30)
[2020-03-10] MEDS ORDERED: Acetaminophen 325 MG TAB PO PRN (18:30)
[2020-03-10] MEDS ORDERED: Lactated Ringer's 500 ML IV SCH (18:45)
[2020-03-10 20:07] LABS: Hemoglobin A1c 8.1 % (4.0-6.0)
[2020-03-10 20:09] VITALS: BMI 29.7
[2020-03-10 20:21] LABS: Magnesium 1.8 mg/dL (1.6-2.6); Phosphorus 3.9 mg/dL (2.3-4.7)
[2020-03-10 20:38] LABS: Free T4 (Free Thyroxine) 0.73 ng/dL (0.70-1.48); Thyroid Stimulating Hormone 17.5133 uIU/mL (0.35-4.94)
[2020-03-10] MEDS ORDERED: Amlodipine 5 MG TAB PO SCH (21:00)
[2020-03-10] MEDS ORDERED: Lactated Ringer's 1,000 ML IV SCH (22:30)
[2020-03-10] MEDS: Lactated Ringer's 1,000 ML IV SCH (23:04)
--- NOTE | 2020-03-10 23:11 | PDOC.BPN ---
- Brief Progress Note Date/Time: 03/10/20 4477 I personally evaluated the patient and discussed the management with Dr. Obrien. H&P pending. I agree with the History, Examination, Assessment and Plan as discussed.
[2020-03-11] MEDS: Lactated Ringer's 1,000 ML IV SCH (02:55)
[2020-03-11 05:00] LABS: #Eosinphils 0.2 thou/uL (0.0-0.7); #Lymphocytes 2.3 thou/uL (1.20-3.40); #Monocytes 0.4 thou/uL (0.11-0.59); #Neutrophils 3.2 thou/uL (1.40-6.50); %Basophils 0.5 % (0.0-1.0); %Eosinophils 2.7 % (0.0-10.0); %Lymphocytes 37.9 % (21.0-51.0); %Neutrophils 52.9 % (42.0-75.0); Hemoglobin 10.1 g/dL (12.0-16.0); Mean Corpuscular HGB CONC 32.6 g/dL (32.0-36.0); Mean Corpuscular Hemoglobin 27.7 pg (27.0-31.0); Mean Platelet Volume 7.4 fL (7.4-10.4); Platelet Count 202 thou/uL (130-400); RBC Distribution Width 15.5 % (11.5-14.5); Red Blood Cell (RBC) Count 3.66 mill/uL (4.20-5.40); White Blood Cell (WBC) Count 6.1 thou/uL (4.8-10.8)
[2020-03-11 05:19] LABS: Anion Gap 12 mmol/L (10-20); BUN (Urea Nitrogen) 17 mg/dL (9.8-20.1); Calc. Creatinine Clearance 56 mL/min (70-130); Calcium 9.2 mg/dL (7.8-10.44); Carbon Dioxide 27 mmol/L (23-31); Chloride 103 mmol/L (98-107); Estimated GFR-MDRD 53; Glucose 119 mg/dL (83-110); Potassium 4.2 mmol/L (3.5-5.1); Sodium 138 mmol/L (136-145)
[2020-03-11] MEDS: Levothyroxine Sodium 125 MCG TAB PO SCH (05:26)
--- NOTE | 2020-03-11 05:41 | PDOC.FM ---
- Subjective Subjective: She says she has felt dizzy for the past week with no changes of medication or illness. She says the dizziness has gotten progressively worse, although she does not note any dizziness on exam this morning. She slept well and is eating fine. - Objective MAR Reviewed: Yes Vital Signs & Weight: Vital Signs (12 hours) Temp Pulse Resp BP Pulse Ox 03/11/20 03:59 97.9 F 53 L 18 125/60 97 03/10/20 20:04 98.1 F 51 L 18 150/67 H 98 Weight Weight 75.931 kg Result Diagrams: 03/11/20 04:48 03/11/20 04:48 Phys Exam - Physical Examination Constitutional: NAD HEENT: PERRLA, moist MMs, sclera anicteric Neck: no nodes, supple Respiratory: no wheezing, no rales, no rhonchi, clear to auscultation bilateral Cardiovascular: no significant murmur, no rub Bradycardic Gastrointestinal: soft, non-tender, positive bowel sounds Musculoskeletal: no edema, pulses present Neurological: normal sensation Psychiatric: normal affect Skin: no rash, normal turgor Dx/Plan (1) Hypotension Status: Acute (2) Dizziness Code(s): R42 - DIZZINESS AND GIDDINESS Status: Acute (3) Symptomatic bradycardia Code(s): R00.1 - BRADYCARDIA, UNSPECIFIED Status: Acute (4) DM type 2 (diabetes mellitus, type 2) Status: Chronic (5) Dyslipidemia Code(s): E78.5 - HYPERLIPIDEMIA, UNSPECIFIED Status: Chronic (6) HTN (hypertension) Code(s): I10 - ESSENTIAL (PRIMARY) HYPERTENSION Status: Chronic (7) Hypothyroid Code(s): E03.9 - HYPOTHYROIDISM, UNSPECIFIED Status: Chronic (8) CAD (coronary artery disease) Code(s): I25.10 - ATHSCL HEART DISEASE OF [place] CORONARY ARTERY W/O ANG PCTRS Status: Chronic - Plan Plan: 74 y/o F admitted for further evaluation and treatment of symptomatic bradycardia 1. Symptomatic Bradycardia Holding Metoprolol * Cardiology consulted, appreciate recs. * Consider pacemaker insertion, possible nitrates for HTN * Othostatics: pending * May be an orthostatic hypotension component with worsening dizziness on standing. * TSH, Mag, and phos wnl * LR @ 125 for volume depletion * Will get ECHO today 2. Hx of HTN Holding Metoprolol * D/c HCTZ due to low fluid PO intake * Will start a low dose ARB for BP control 3. Extensive arterial disease with Hx of CAD, PAD and Carotid artery stenosis Continue ASA, Plavix and statin therapy. * Prior CABG, X3 vessels and L femoral artery PAD sx last year. 4. Hx of Hypothyroidism TSH: 17.5133, T3: 2.53, T4: 0.73 * Continue home levothyroxine dose 5. Hx of COPD Pt at respiratory baseline. * No exacerbation, continue home albuterol 6. Type II DM Continue metformin and invokana * Currently on 500 mg of Metformin, but was to increase to 1000mg, we will do that here. * A1C: 8.1 7. MDD Continue home citalopram Code status: full code Diet: HH IVF: LR @ 125 DVT PPx: Lovenox [facility] Dispo: Tele obs for symptomatic bradycardia, LOS < 48H. Will get orthostatics, discuss causes of elevated TSH, and consult Cardiology. Addendum - Attending - Attending Attestation Date/Time: 03/11/20 1007 I personally evaluated the patient and discussed the management with [Lynn] I agree with the History, Examination, Assessment and Plan documented above with any addition or exceptions noted below.
--- NOTE | 2020-03-11 06:44 | CON ---
DATE OF CONSULTATION: 03/10/2020 INDICATION FOR CONSULTATION: This is an elderly female, 74 years old, with bradycardia. She was admitted with bradycardia and dizziness. We were asked to see her due to bradycardia. HISTORY OF PRESENT ILLNESS: This is a very pleasant lady who has been a patient of mine for many years. She has a significant history of vascular disease. She has undergone multiple operations, surgeries, interventions due to her vascular disease starting back several years ago and I will outline these later, but she presented now after having some dizziness and lightheadedness for the last week. She presented to the emergency room and found that her heart rate is in the 40s and 50s. She had been on metoprolol, this dose is being held, and we will continue to monitor her this evening. She denies any chest pain or any significant shortness of breath. Otherwise, she remains stable at this time on telemetry with a heart rate in the 50s and shows a sinus rhythm. PAST MEDICAL HISTORY: Significant for coronary artery disease. She underwent bypass surgery in 2015 with a HENLEY to the left anterior descending artery, saphenous vein graft to the obtuse marginal branch of left circumflex, and also a saphenous vein graft to the right coronary artery in 2014. She had a celiac stent placed , and she also had a superior mesenteric artery stent placement in November of this year. She had a left common iliac stent placed, and also had left external iliac and common femoral artery endarterectomy with patch graft. She has a history of COPD with chronic cough. She has diabetes, hypertension, dyslipidemia. She has had a history of GI bleed in 2016. MEDICATIONS: Prior to admission should have included, 1. Zyrtec. 2. Plavix 75 mg a day. 3. Hydrochlorothiazide 25 mg daily. 4. Citalopram, believes she was taking 40 mg q.a.m. 5. Multivitamin. 6. She was on metoprolol, uncertain of the dose. She was taking one tablet a day of Toprol-XL. 7. She was taking atorvastatin 20 mg q.p.m. 8. Levothyroxine 125 mcg daily. 9. Vitamin B complex. 10. Lumigan ophthalmic drops. 11. She was taking fluorometholone ophthalmic drops. 12. Also taking TheraTears, Cosopt ophthalmic drops. 13. Latanoprost ophthalmic solution. 14. Metformin 500 mg b.i.d. 15. She was taking also other ophthalmic drops. 16. Melatonin. 17. Aspirin 81 mg a day. ALLERGIES: NONE. FAMILY HISTORY: Noncontributory. SOCIAL HISTORY: She smoked in the past, but stopped many years ago. At least 15 to 20 years ago, she stopped smoking; previous to that, does smoke significantly. She still lives at home. REVIEW OF SYSTEMS: A 12-point review of systems unremarkable. She has been doing very well despite her severe peripheral vascular disease except for what was noted within the last week. She stated couple of weeks ago, she was doing quite well without any significant complaints. LABORATORY DATA: Hemoglobin of 10.9, WBC was 10, hematocrit was 34.7, and platelet count was 258,000. Her BUN was 20 with a creatinine of 1.21. Blood sugar was 130. Sodium was 136 with potassium of 4.7, hemoglobin A1c was 8.1. Cardiac enzymes are negative. PHYSICAL EXAMINATION: GENERAL: A well-developed, well-nourished female. She is in no acute distress at this time. She is somewhat elderly. HEENT: Well-healed surgical incisions over bilateral carotid areas. She has a very soft right carotid bruit. CHEST: Clear to auscultation. CARDIOVASCULAR: Regular rhythm, somewhat bradycardic, very soft systolic murmur over the aortic area, otherwise no significant abnormalities were noted. ABDOMEN: Soft and nontender. Positive bowel sounds are present. She also had a well-healed midline median sternotomy incision after her bypass surgery as well as well-healed surgical incisions over the bilateral carotid areas. She has a healing surgical incision of the left femoral area in the groin. She has a right femoral bruit. EXTREMITIES: There are decreased pulses noted in the right lower extremity in the popliteal. I cannot palpate popliteal nor pedal pulses on the right. The left has good pulses throughout. SKIN: Warm and dry. There was no evidence of edema. NEUROLOGIC: She appears to be grossly intact. There are no gross focal motor deficits noted. DIAGNOSTIC STUDIES: Her EKG shows a sinus bradycardia, evidence of probable left ventricular hypertrophy, but no ST-segment changes that would indicate ischemia. IMPRESSION: 1. An elderly female who has significant peripheral vascular disease, which appears to be actually stable at this time with new onset significant bradycardia. We will hold her beta blockers at this time. We will see whether or not she recovers. Otherwise, she will need to undergo pacemaker insertion. 2. Significant peripheral vascular disease. Again, this appears to be somewhat stable. There are decreased pulses noted on the right lower extremity. 3. History of chronic obstructive pulmonary disease. This also appears to be stable at this time. We will continue her nebulizers. 4. Diabetes. This will be dealt with by the primary care service. 5. Hypertension. This appears to be slightly elevated at this time. We will continue to monitor that. Once the beta blockers are stopped, we may need to add other medications. Certainly could add nitrates in order to lower the blood pressure. 6. History of dyslipidemia. We will continue her statin medications to control the cholesterol. We will continue to follow the patient with you and also ask for an echocardiogram for evaluation of the left ventricular systolic function. I did explain to the patient that she may eventually need to undergo pacemaker insertion if the heart rate does not increase. Job ID: [id number] MTDD
[2020-03-11] MEDS: Clopidogrel Bisulfate 75 MG TAB PO SCH (08:27)
[2020-03-11] MEDS: Multivitamin W/ Minerals 1 TAB PO SCH (08:27)
[2020-03-11] MEDS: Aspirin 81 mg Enteric Coated Tablet PO SCH (08:27)
[2020-03-11] MEDS: Citalopram 20 MG TAB PO SCH (08:27)
[2020-03-11] MEDS: Enoxaparin Sodium 40 MG/0.4 ML SYRINGE SC SCH (08:28)
[2020-03-11] MEDS: Amlodipine 5 MG TAB PO SCH (08:28)
[2020-03-11] MEDS ORDERED: metFORMIN 500 MG TAB PO SCH (09:00)
--- NOTE | 2020-03-11 13:00 | PDOC.CPN ---
- Subjective Date: 03/11/20 Time: 13:13 Interval history: The pt seen and examined. No overnight events. No cardiac complaints. - Objective Allergies/Adverse Reactions: Allergies Allergy/AdvReac Type Severity Reaction Status Date / Time No Known Allergies Allergy Verified 03/10/20 20:11 Visit Medications: Current Medications Acetaminophen (Tylenol) 650 mg PO Q4H PRN PRN Reason: Headache/Fever/Mild Pain (1-3) Amlodipine Besylate (Norvasc) 5 mg PO DAILY [facility] Last Admin: 03/11/20 08:28 Dose: 5 mg Aspirin (Ecotrin) 81 mg PO DAILY [facility] Last Admin: 03/11/20 08:27 Dose: 81 mg Atorvastatin Calcium (Lipitor) 20 mg PO [facility] Citalopram Hydrobromide (Celexa) 40 mg PO QAM [facility] Last Admin: 03/11/20 08:27 Dose: 40 mg Clopidogrel Bisulfate (Plavix) 75 mg PO QAM [facility] Last Admin: 03/11/20 08:27 Dose: 75 mg Enoxaparin Sodium (Lovenox) 40 mg SC 0900 [facility] Last Admin: 03/11/20 08:28 Dose: 40 mg Iron/Minerals/Multivitamins (Theragran M) [facility] Last Admin: 03/11/20 08:27 Dose: 1 tab Latanoprost (Xalatan 0.005% Oph Soln) 1 drop L EYE [facility] Levothyroxine Sodium (Synthroid) 125 mcg PO 0600 [facility] Last Admin: 03/11/20 05:26 Dose: 125 mcg Metformin HCl (Glucophage) 500 mg PO DAILY [facility] Last Admin: 03/11/20 08:28 Dose: 500 mg Ondansetron HCl (Zofran Odt) 4 mg PO Q6H PRN PRN Reason: Nausea/Vomiting Sodium Chloride (Flush - Normal Saline) 10 ml IVF PRN PRN PRN Reason: Saline Flush Vital Signs & Weight: Vital Signs Temp Pulse Resp BP BP BP BP 03/11/20 11:10 97.1 F L 56 L 18 147/62 H 03/11/20 08:28 53 L 03/11/20 08:25 98.2 F 57 L 18 128/51 L 03/11/20 07:00 164/64 H 119/55 L 111/53 L 03/11/20 03:59 97.9 F 53 L 18 125/60 Pulse Ox 03/11/20 11:10 95 03/11/20 08:28 03/11/20 08:25 95 03/11/20 07:00 03/11/20 03:59 97 Weight 167 lb 6.4 oz - Physical Exam General: alert & oriented x3 HEENT: mucus membranes moist Neck: supple neck Cardiac: regular rate and rhythm, S1/S2 Lungs: clear to auscultation Neuro: cranial nerve 2-12 intact Abdomen: unremarkable - Labs Result Diagrams: 03/11/20 04:48 03/11/20 04:48 Troponin/CKMB Troponin I Less than 0.010 ng/mL (< 0.028) 03/10/20 15:07 - Telemetry Sinus rhythms and dysrhythmias: sinus rhythm - Assessment/Plan Assessment/Plan: 1. Symptomatic Bradycardia - HR has been mid 50s-60s with holding Metoprolol; 2. Dizziness possible 2/2 Orthostatic hypotension - On LR @ 125ml/h; Recommend to wear compression stockings 3. CAD with hx of CABG x 3 in 2015 with HENLEY-LAD, GSV-OM, GSV-RCA - On ASA, Lipitor, and Plavix; Metoprolol is on hold due to bradycardia 4. PAD - the pt supposes to undergo AFRO in 10/2019; however, the procedure has not been done 5. HTN - stable; may start KARTIK/ARB for HTN, CAD and DM management 6. HLD - on Statin 7. DM type 2 8. Hx of Hypothyroidism 9. COPD - she is on Pro Air at home 10. hx of Rt CEA in 2012 MAR reviewed Pt. seen and eval. by me. I agree with the A/P by the [employer]IES[employer] SERVICE JOURNEYMAN. she is off betablockers, if the HR continues to dip into the 40's with symptoms then she will need a pacemaker.
[2020-03-11] MEDS: Latanoprost 0.005% Ophth Soln 2.5 ml Bottle L EYE SCH (20:20)
[2020-03-11] MEDS: Atorvastatin Calcium 20 MG TAB PO SCH (20:20)
[2020-03-12 04:44] LABS: Anion Gap 13 mmol/L (10-20); BUN (Urea Nitrogen) 16 mg/dL (9.8-20.1); Calc. Creatinine Clearance 53 mL/min (70-130); Calcium 9.1 mg/dL (7.8-10.44); Carbon Dioxide 28 mmol/L (23-31); Chloride 104 mmol/L (98-107); Estimated GFR-MDRD 49; Glucose 166 mg/dL (83-110); Potassium 5.3 mmol/L (3.5-5.1); Sodium 140 mmol/L (136-145)
[2020-03-12] MEDS: Levothyroxine Sodium 125 MCG TAB PO SCH (05:00)
--- NOTE | 2020-03-12 06:11 | PDOC.FM ---
- Subjective Subjective: She has no dizziness. She feels well. She said she is sleeping and eating well. - Objective MAR Reviewed: Yes Vital Signs & Weight: Vital Signs (12 hours) Temp Pulse Resp BP Pulse Ox 03/12/20 03:49 98 03/12/20 03:34 98.1 F 62 18 150/62 H 150 H 03/11/20 23:08 128/65 03/11/20 18:54 98.1 F 63 16 161/63 H 98 Weight Weight 76.657 kg I&O: 03/10/20 03/11/20 03/12/20 06:59 06:59 06:59 Intake Total 1745 2365 Output Total 1200 1900 Balance 545 465 Result Diagrams: 03/11/20 04:48 03/12/20 03:56 EKG Reviewed by me: Yes (SR 60-70s) Phys Exam - Physical Examination Constitutional: NAD HEENT: moist MMs, sclera anicteric Neck: supple, full ROM Respiratory: no wheezing, no rales, no rhonchi, clear to auscultation bilateral Cardiovascular: RRR, no significant murmur, no rub Gastrointestinal: soft, non-tender, positive bowel sounds Musculoskeletal: no edema, pulses present Neurological: moves all 4 limbs Psychiatric: normal affect Skin: no rash, normal turgor Dx/Plan (1) Hypotension Status: Acute (2) Dizziness Code(s): R42 - DIZZINESS AND GIDDINESS Status: Acute (3) Symptomatic bradycardia Code(s): R00.1 - BRADYCARDIA, UNSPECIFIED Status: Acute (4) DM type 2 (diabetes mellitus, type 2) Status: Chronic (5) Dyslipidemia Code(s): E78.5 - HYPERLIPIDEMIA, UNSPECIFIED Status: Chronic (6) HTN (hypertension) Code(s): I10 - ESSENTIAL (PRIMARY) HYPERTENSION Status: Chronic (7) Hypothyroid Code(s): E03.9 - HYPOTHYROIDISM, UNSPECIFIED Status: Chronic (8) CAD (coronary artery disease) Code(s): I25.10 - ATHSCL HEART DISEASE OF [place] CORONARY ARTERY W/O ANG PCTRS Status: Chronic - Plan Plan: 74 y/o F admitted for further evaluation and treatment of symptomatic bradycardia 1. Symptomatic Bradycardia- Improving Holding Metoprolol * Cardiology consulted, appreciate recs. * Consider pacemaker insertion, Compression socks for orthostasis, Start KARTIK/ HENRY * Othostatics: positive * May be an orthostatic hypotension component with worsening dizziness on standing. * TSH, Mag, and phos wnl * ECHO: EF 60-65% with Mild MR & AL, Trace TR 2. Hx of HTN Holding Metoprolol * D/c HCTZ due to low fluid PO intake * Started Lisinopril 3. Extensive arterial disease with Hx of CAD, PAD and Carotid artery stenosis Continue ASA, Plavix and statin therapy. * Prior CABG, X3 vessels and L femoral artery PAD sx last year. 4. Hx of Hypothyroidism TSH: 17.5133, T3: 2.53, T4: 0.73 * Continue home levothyroxine dose 5. Hx of COPD Pt at respiratory baseline. * No exacerbation, continue home albuterol 6. Type II DM Continue metformin and invokana * Currently on 500 mg of Metformin, but was to increase to 1000mg, we will do that here. * A1C: 8.1 7. MDD Continue home medication: Citalopram Code status: full code Diet: HH IVF: SL DVT PPx: Lovenox PCP: [facility] Dispo: Tele obs for symptomatic bradycardia, LOS < 48H. Will monitor HR consider and await Cardiology recommendations. Addendum - Attending - Attending Attestation Date/Time: 03/12/20 5865 I personally evaluated the patient and discussed the management with [Lynn] I agree with the History, Examination, Assessment and Plan documented above with any addition or exceptions noted below.
[2020-03-12] MEDS: Enoxaparin Sodium 40 MG/0.4 ML SYRINGE SC SCH (08:23)
[2020-03-12] MEDS: Amlodipine 5 MG TAB PO SCH (08:24)
[2020-03-12] MEDS: metFORMIN 500 MG TAB PO SCH (08:24)
[2020-03-12] MEDS: Clopidogrel Bisulfate 75 MG TAB PO SCH (08:24)
[2020-03-12] MEDS: Lisinopril 5 MG TAB PO SCH (08:24)
[2020-03-12] MEDS: Multivitamin W/ Minerals 1 TAB PO SCH (08:24)
[2020-03-12] MEDS: Aspirin 81 mg Enteric Coated Tablet PO SCH (08:24)
[2020-03-12] MEDS: Citalopram 20 MG TAB PO SCH (08:25)
--- NOTE | 2020-03-12 13:04 | PDOC.CPN ---
- Subjective Date: 03/12/20 Time: 13:08 Interval history: The pt seen and examined. No overnight events. No cardiac complaints, except DE LA CRUZ with mild exertion. She has severe SOB after walking to bathroom - Objective Allergies/Adverse Reactions: Allergies Allergy/AdvReac Type Severity Reaction Status Date / Time No Known Allergies Allergy Verified 03/10/20 20:11 Visit Medications: Current Medications Acetaminophen (Tylenol) 650 mg PO Q4H PRN PRN Reason: Headache/Fever/Mild Pain (1-3) Amlodipine Besylate (Norvasc) 5 mg PO DAILY [facility] Last Admin: 03/12/20 08:24 Dose: 5 mg Aspirin (Ecotrin) 81 mg PO DAILY [facility] Last Admin: 03/12/20 08:24 Dose: 81 mg Atorvastatin Calcium (Lipitor) [address] [facility] Last Admin: 03/11/20 20:20 Dose: 20 mg Citalopram [facility] ([facility]lexa) [facility] Last Admin: 03/12/20 08:25 Dose: 40 mg Clopidogrel Bisulfate (Plavix) [facility] Last Admin: 03/12/20 08:24 Dose: 75 mg Enoxaparin Sodium (Lovenox) 40 mg SC 0900 [facility] Last Admin: 03/12/20 08:23 Dose: 40 mg Iron/Minerals/Multivitamins (Theragran M) [facility] tab [facility] Last Admin: 03/12/20 08:24 Dose: 1 tab Latanoprost (Xalatan 0.005% Ophth Soln) [address] [facility] Last Admin: 03/11/20 20:20 Dose: 1 drop Levothyroxine Sodium (Synthroid) 125 mcg PO 0600 [facility] Last Admin: 03/12/20 05:00 Dose: 125 mcg Lisinopril (Zestril) 5 mg PO DAILY [facility] Last Admin: 03/12/20 08:24 Dose: 5 mg Metformin HCl (Glucophage) 1,000 mg [facility] Last Admin: 03/12/20 08:24 Dose: 1,000 mg Mometasone Furoate/Formoterol Fumar (Dulera 200 Mcg/5 Mcg Inhaler) 1 puff INH BID-RT [facility] Ondansetron HCl (Zofran Odt) 4 mg PO Q6H PRN PRN Reason: Nausea/Vomiting Sodium Chloride (Flush - Normal Saline) 10 ml IVF PRN PRN PRN Reason: Saline Flush Last Admin: 03/12/20 08:25 Dose: 10 ml Vital Signs & Weight: Vital Signs Temp Pulse Resp BP Pulse Ox 03/12/20 11:20 98 F 62 16 135/63 97 03/12/20 07:35 97.8 F 62 16 144/65 H 96 03/12/20 03:49 98 03/12/20 03:34 98.1 F 62 18 150/62 H 150 H Weight 169 lb - Physical Exam General: alert & oriented x3 HEENT: mucus membranes moist Neck: supple neck Cardiac: regular rate and rhythm, S1/S2 Lungs: decreased breath sounds Neuro: cranial nerve 2-12 intact Extremities: no edema - Labs Result Diagrams: 03/11/20 04:48 03/13/20 04:06 Troponin/CKMB Troponin I Less than 0.010 ng/mL (< 0.028) 03/10/20 15:07 - Telemetry Sinus rhythms and dysrhythmias: sinus rhythm - Assessment/Plan Assessment/Plan: 1. Symptomatic Bradycardia - HR has been upper 50s-60s with holding Metoprolol; 2. Dizziness possible 2/2 Orthostatic hypotension - stable; 3. CAD with hx of CABG x 3 in 2016 with HENLEY-LAD, GSV-OM, GSV-RCA - On ASA, Lipitor, and Plavix; Metoprolol is on hold due to bradycardia; Stress test was ordered for DE LA CRUZ 4. PAD - stable. followed by CV surgery. 5. HTN - On Lisinopril 5mg qd; 6. HLD - on Statin 7. DM type 2 8. Hx of Hypothyroidism 9. COPD - will start Symbicort for SOB; she is on Pro Air at home 10. hx of Rt CEA in 2012 11. DE LA CRUZ - will order Stress test MAR reviewed * Echo with EF 60-65% with Mild MR & [place], Trace TR * Pt. seen and eval. by me. I agree with the A/P by the [employer] [facility] [employer] Chest clear. RRR. plan for stress test tomorrow. leo
[2020-03-12] MEDS: Mometasone 200 MCG/Formoterol 5 MCG 120 PUFF INHALER INH SCH (19:20)
[2020-03-12] MEDS: Atorvastatin Calcium 20 MG TAB PO SCH (20:25)
[2020-03-12] MEDS: Latanoprost 0.005% Ophth Soln 2.5 ml Bottle L EYE SCH (20:25)
[2020-03-13 05:05] LABS: Anion Gap 10 mmol/L (10-20); BUN (Urea Nitrogen) 19 mg/dL (9.8-20.1); Calc. Creatinine Clearance 50 mL/min (70-130); Calcium 9.2 mg/dL (7.8-10.44); Carbon Dioxide 29 mmol/L (23-31); Chloride 100 mmol/L (98-107); Estimated GFR-MDRD 46; Glucose 163 mg/dL (83-110); Potassium 4.2 mmol/L (3.5-5.1); Sodium 135 mmol/L (136-145)
[2020-03-13] MEDS: Levothyroxine Sodium 125 MCG TAB PO SCH (05:06)
[2020-03-13] MEDS: Mometasone 200 MCG/Formoterol 5 MCG 120 PUFF INHALER INH SCH (07:09)
--- NOTE | 2020-03-13 08:06 | PDOC.FM ---
- Subjective Subjective: Patient doing well this morning. Denies any further episodes of dizziness. Says she has been able to get up and walk to bathroom, denies any symptoms during these periods. Denies any complaints this mornings. Is awaiting stress test today. - Objective MAR Reviewed: Yes Vital Signs & Weight: Vital Signs (12 hours) Temp Pulse Resp BP BP Pulse Ox 03/13/20 03:33 98.4 F 74 18 166/67 H 98 03/13/20 00:00 116/52 L Weight Weight 76.793 kg I&O: 03/12/20 03/13/20 03/14/20 06:59 06:59 06:59 Intake Total 2365 1797 Output Total 1900 6905 Balance 465 -299 Result Diagrams: 03/11/20 04:48 03/13/20 04:06 Phys Exam - Physical Examination Constitutional: NAD HEENT: moist MMs, sclera anicteric Neck: no JVD, supple, full ROM Respiratory: no wheezing, clear to auscultation bilateral Cardiovascular: RRR, no significant murmur Gastrointestinal: soft, non-tender, positive bowel sounds Musculoskeletal: no edema, pulses present Neurological: normal sensation, moves all 4 limbs Psychiatric: normal affect, A&O x 3 Skin: no rash, normal turgor Dx/Plan (1) Symptomatic bradycardia Code(s): R00.1 - BRADYCARDIA, UNSPECIFIED Status: Acute (2) DM type 2 (diabetes mellitus, type 2) Status: Chronic Qualifiers: Diabetes mellitus extermination supervisor insulin use: without senior living use Diabetes mellitus complication status: with hyperglycemia Qualified Code(s): E11.65 - Type 2 diabetes mellitus with hyperglycemia (3) Hypothyroid Code(s): E03.9 - HYPOTHYROIDISM, UNSPECIFIED Status: Chronic Qualifiers: Hypothyroidism type: unspecified Qualified Code(s): E03.9 - Hypothyroidism , unspecified (4) Dizziness Code(s): R42 - DIZZINESS AND GIDDINESS Status: Acute (5) Orthostatic hypotension Code(s): I95.1 - ORTHOSTATIC HYPOTENSION Status: Acute - Plan Plan: 74 y/o F admitted for further evaluation and treatment of symptomatic bradycardia #Symptomatic Bradycardia- Improving -Holding Metoprolol * Cardiology consulted, appreciate recs. * Consider pacemaker insertion, Compression socks for orthostasis, Started Lisinopril * Plan for stress test this morning for further eval * Othostatics: positive * May be an orthostatic hypotension component with worsening dizziness on standing. * Mag & phos wnl * TSH 17.5 * ECHO: EF 60-65% with Mild MR & [place], Trace TR #Hx of HTN -Holding Metoprolol * D/c HCTZ due to low fluid PO intake * Started Lisinopril #Extensive arterial disease with Hx of CAD, PAD and Carotid artery stenosis -Continue ASA, Plavix and statin therapy. * Prior CABG, X3 vessels and L femoral artery PAD sx last year. #Hx of Hypothyroidism -TSH: 17.5133, T3: 2.53, T4: 0.73 * Continue home levothyroxine dose--consider adjusting #Hx of COPD -Pt at respiratory baseline. * No exacerbation, continue home albuterol #Type II DM -Continue metformin and invokana * Currently on 500 mg of Metformin, but was to increase to 1000mg, we will do that here. * A1C: 8.1 #MDD -Continue home medication: Citalopram Code status: full code Diet: HH IVF: SL DVT PPx: Lovenox PCP: LEONEL Francisco Dispo: Stable, admitted to inpatient on telemetry for symptomatic bradycardia. Will continue to monitor HR, stress test today. Await further Cardiology recommendations. Anticipate discharge in >48 hrs. Addendum - Attending - Attending Attestation Date/Time: 03/13/20 1221 I personally evaluated the patient and discussed the management with Dr. Stout. I agree with the History, Examination, Assessment and Plan documented above with any addition or exceptions noted below. NM stress test today per cards recs. awaiting results and further recommendations. Appears to be iatrogenic in etiology due to beta ernesto.
[2020-03-13] MEDS ORDERED: Regadenoson 0.4 MG/5 ML SYRINGE ONE (09:30)
--- NOTE | 2020-03-13 14:23 | NM ---
CARDIAC SPECT: CLINICAL HISTORY: Dyspnea on exertion. Coronary artery disease. Status post CABG. Asthma, hypertension, diabetes, and d yslipidemia. TECHNIQUE: A myocardial perfusion scan was performed using the single isotope one day protocol with technetium-9 9m sestamibi. 10 mCi were injected intravenously for the rest exam followed by 31 mCi for the stress exam. Pharmacologic stress with Lexiscan was monitored and interpreted by Shankar Oh. FINDINGS: Homogeneous tracer distribution is seen in the myocardial segments on stress and rest images without fixed or reversible defects. GATED SPECT LVEF: 75%. WALL MOTION EXAM: Normal. IMPRESSION: Normal myocardial perfusion scan. POS: [facility]
[2020-03-13] MEDS: Aspirin 81 mg Enteric Coated Tablet PO SCH (14:31)
[2020-03-13] MEDS: Clopidogrel Bisulfate 75 MG TAB PO SCH (14:31)
[2020-03-13] MEDS: metFORMIN 500 MG TAB PO SCH (14:31)
[2020-03-13] MEDS: Multivitamin W/ Minerals 1 TAB PO SCH (14:31)
[2020-03-13] MEDS: Enoxaparin Sodium 40 MG/0.4 ML SYRINGE SC SCH (14:31)
[2020-03-13] MEDS: Lisinopril 5 MG TAB PO SCH (14:32)
[2020-03-13] MEDS: Citalopram 20 MG TAB PO SCH (14:32)
[2020-03-13] MEDS: Amlodipine 5 MG TAB PO SCH (14:32)
--- NOTE | 2020-03-13 14:32 | PQF ---
DATE: 03-13-20 ATTN: DR. AURORA KEN Please exercise your independent, professional judgment in responding to the clarification form. Clinical indicators are provided on the bottom of this form for your review Please check appropriate box(s): [ ] Acute Renal Failure/FATEMEH [ ] Insignificant Lab Values [ X ] Other diagnosis: CKD Stage 3 [ ] Unable to determine In addition, please specify: Present on Admission (POA): [ X ] Yes [ ] No [ ] Unable to determine National Kidney Foundation Guidelines for CKD Staging Stage I Kidney damage with normal or increased GFR GFR > 90 Stage II Kidney damage with mildly decreased GFR GFR 60-89 Stage III Kidney damage with moderately decreased GFR GFR 30-59 Stage IV Kidney damage with severely decreased GFR GFR 16-29 Stage V Kidney failure GFR<15 ESRD End Stage Renal Disease On dialysis Acute Renal Failure/Acute Kidney Failure defined as: Increases in SCr by (>) 0.3 mg/dl within 48 hours OR- Increases in SCr by (>) 1.5 times baseline, known or presumed to have occurred within the prior 7 days OR- Urine volume < 0.5 ml/kg/hour for 6 hours (KDIGO supplement 2012 for RIFLE/STEPHAN criteria) For continuity of documentation, please document condition throughout progress notes and discharge summary. Thank You. CLINICAL INDICATORS - SIGNS / SYMPTOMS / LABS / RESULTS AND LOCATION IN MR: GFR: 03-10-20: 43 03-11-20: 53 03-12-20: 49 03-13-20: 46 CREATININE: 03-10-20: 1.21 03-11-20: 1.02 03-12-20: 1.08 03-13-20: 1.15 BUN: 03-10-20: 20 03-11-20: 17 03-12-20: 16 03-13-20: [address] KEN 03-12-20: SYMPTOMATIC BRADYCARDIA, DM 2, ACUTE ORTHOSTATIC HYPOTENSION RISK FACTORS / RESULTS AND LOCATION IN MR: CONSULT NOTE DR. KIM 03-10-20: HOME MEDS: PLAVIX, HYDROCHLOROTHIAZIDE, TOPROL XL, METFORMIN, ASA TREATMENTS / RESULTS AND LOCATION IN MR: MONITORING OF LABS 03-10-20 TO 03-13-20 (This form is maintained as a part of the permanent medical record) 2014 [employer]. All Rights Reserved RUBA [email or web address] Cell [facility]
--- NOTE | 2020-03-13 15:53 | PDOC.CPN ---
- Subjective Date: 03/13/20 Time: 16:00 - Review of Systems General: denies: fever/chills, weight/appetite/sleep changes, night sweats, fatigue Respiratory: denies: cough, congestion, shortness of breath, exercise intolerance Cardiovascular: denies: chest pain, palpitation, edema, paroxysmal nocturnal dyspnea, orthopnea Gastrointestinal: denies: nausea, vomiting, diarrhea, constipation, abd pain, GI bleeding Musculoskeletal: denies: pain, tenderness, stiffness, swelling, arthritis/ arthralgias Neurological: denies: numbness, syncope, seizure, weakness - Objective Allergies/Adverse Reactions: Allergies Allergy/AdvReac Type Severity Reaction Status Date / Time No Known Allergies Allergy Verified 03/10/20 20:11 Visit Medications: Current Medications Acetaminophen (Tylenol) 650 mg PO Q4H PRN PRN Reason: Headache/Fever/Mild Pain (1-3) Amlodipine Besylate (Norvasc) 5 mg PO DAILY [facility] Last Admin: 03/13/20 14:32 Dose: 5 mg Aspirin (Ecotrin) 81 mg PO DAILY [facility] Last Admin: 03/13/20 14:31 Dose: 81 mg Atorvastatin Calcium (Lipitor) 20 mg PO [facility] Last Admin: 03/12/20 20:25 Dose: 20 mg Citalopram Hydrobromide (Celexa) 40 mg PO [facility] Last Admin: 03/13/20 14:32 Dose: 40 mg Clopidogrel Bisulfate (Plavix) [facility] [place] Last Admin: 03/13/20 14:31 Dose: 75 mg Enoxaparin Sodium (Lovenox) 40 mg SC 0900 [facility] Last Admin: 03/13/20 14:31 Dose: 40 mg Iron/Minerals/Multivitamins (Theragran M) 1 tab [facility] Last Admin: 03/13/20 14:31 Dose: 1 tab Latanoprost (Xalatan 0.005% Ophth Soln) 1 drop L EYE [facility] Last Admin: 03/12/20 20:25 Dose: 1 drop Levothyroxine Sodium (Synthroid) 125 mcg PO 0600 [facility] Last Admin: 03/13/20 05:06 Dose: 125 mcg Lisinopril (Zestril) 5 mg PO DAILY [facility] Last Admin: 03/13/20 14:32 Dose: 5 mg Metformin HCl (Glucophage) 1,000 mg PO QA-[facility] Last Admin: 03/13/20 14:31 Dose: 1,000 mg Mometasone Furoate/Formoterol Fumar (Dulera 200 Mcg/5 Mcg Inhaler) 1 puff INH BID-RT [facility] Last Admin: 03/13/20 07:09 Dose: 1 puff Ondansetron HCl (Zofran Odt) 4 mg PO Q6H PRN PRN Reason: Nausea/Vomiting Sodium Chloride (Flush - Normal Saline) 10 ml IVF PRN PRN PRN Reason: Saline Flush Last Admin: 03/12/20 08:25 Dose: 10 ml Vital Signs & Weight: Vital Signs Temp Pulse Resp BP BP Pulse Ox 03/13/20 14:32 78 165/70 H 03/13/20 07:10 98.0 F 74 16 135/60 95 Weight 169 lb 4.8 oz - Quality Measures Condition: Coronary Artery Disease CV meds: Beta [place]: No (symptomatic bradycardia), KARTIK/ARB: Yes, Statin: Yes, ASA: Yes - Physical Exam General: alert & oriented x3 HEENT: mucus membranes moist Neck: no JVD/HJR Cardiac: regular rate and rhythm Lungs: clear to auscultation Neuro: grossly intact Abdomen: unremarkable Extremities: no cyanosis, no clubbing, no edema Musculoskeletal: normal range of motion - Labs Result Diagrams: 03/11/20 04:48 03/13/20 04:06 Troponin/CKMB Troponin I Less than 0.010 ng/mL (< 0.028) 03/10/20 15:07 - Telemetry Sinus rhythms and dysrhythmias: sinus rhythm - Assessment/Plan Assessment/Plan: 1. Symptomatic Bradycardia - HR has been upper 60-70's with holding Metoprolol; 2. Dizziness possible 2/2 Orthostatic hypotension - stable; resolved 3. CAD with hx of CABG x 3 in 2016 with HENLEY-LAD, GSV-OM, GSV-RCA - On ASA, Lipitor, and Plavix; Metoprolol is on hold due to bradycardia; Stress test was ordered for DE LA CRUZ, No ischemia, EF > 60% 4. PAD - stable. followed by CV surgery. 5. HTN - On Lisinopril 5mg qd; BP was higher today but was NPO for stress test. 6. HLD - on Statin 7. DM type 2 8. Hx of Hypothyroidism 9. COPD - will start Symbicort for SOB; she is on Pro Air at home 10. hx of Rt CEA in 2012 11. DE LA CRUZ - will order Stress test MAR reviewed * Echo with EF 60-65% with Mild MR & [place], Trace TR Pt. is stable for d/c. F/U with me in 2-4 weeks.
[2020-03-13 16:33] VITALS: BP 160/71; TEMP 97.8
--- NOTE | 2020-03-14 11:58 | DIS ---
DATE OF ADMISSION: 03/12/2020 DATE OF DISCHARGE: 03/13/2020 PRIMARY CARE PHYSICIAN: Dr. Brooks Francisco at [facility]. RESIDENT: Shea Stout DO ADMITTING ATTENDING: Donald Villeda MD DISCHARGE ATTENDING: Manpreet Nesbitt MD CONSULT: Cardiology, Violeta Clements MD PROCEDURES: 1. Chest x-ray on March 10, 2020: No acute process. 2. Echocardiogram on March 11, 2020: Ejection fraction estimated at 60% to 65%. Normal right ventricular size and function. The left atrium is [id number] dilated. Normal right atrium size. Structurally normal mitral valve. Mild mitral regurgitation is present. Structurally normal aortic valve. Trace tricuspid regurgitation. Mild pulmonic regurgitation is present. 3. Nuclear stress test on March 13, 2020: Normal myocardial perfusion scan. Left ventricular ejection fraction estimated at 75%. Normal wall motion. PRIMARY DIAGNOSIS: Symptomatic bradycardia. SECONDARY DIAGNOSES: 1. Hypertension. 2. Coronary artery disease. 3. PAD. 4. Carotid artery stenosis. 5. Hypothyroidism. 6. Chronic obstructive pulmonary disease. 7. Type 2 diabetes. 8. Major depression disorder. DISCHARGE MEDICATIONS: 1. Plavix 75 mg p.o. daily. 2. Citalopram 40 mg p.o. daily. 3. Multivitamin. 4. Atorvastatin 20 mg p.o. at bedtime. 5. Levothyroxine sodium 125 mcg p.o. daily. 6. Latanoprost 0.005% ophthalmic drops one drop in left eye at bedtime. 7. Aspirin 81 mg p.o. daily. 8. Mucinex 1200 mg p.o. b.i.d. p.r.n. 9. Amlodipine 5 mg p.o. daily. 10. Lisinopril 5 mg p.o. daily. 11. Metformin 1000 mg p.o. daily. 12. Dulera inhaler 200 mcg/5 mcg one puff inhaled b.i.d. DISCONTINUED MEDICATIONS: 1. Hydrochlorothiazide 25 mg p.o. daily. 2. Metoprolol succinate 50 mg p.o. daily. 3. Metformin 500 mg p.o. daily. HISTORY OF PRESENT ILLNESS/HOSPITAL COURSE: The patient is a 74-year-old female, who presented to [facility] Emergency Department on March 10, 2020, after she felt dizzy while standing. The symptoms started "earlier this week." She denies ever having had symptoms before. The patient stated that the dizziness was worsened when she stands up quickly. She does drink two cups of coffee in the morning and then takes only sips of water very infrequently during the day. She stated she had a chronic cough from COPD with mild mucus production, which is her baseline. She also complained of generalized weakness. The patient denied syncope, chest pain, swelling, fevers, chills, or night sweats. Of note, the patient does have a past medical history of hypothyroidism, coronary artery disease status post a three-vessel CABG, diabetes, hypertension, and hyperlipidemia. The patient was admitted to the telemetry unit for further workup. Upon arrival to the floor, the patient was evaluated by the resident team. She was assessed in determined to have symptomatic bradycardia. At that time, her home metoprolol was held. A Cardiology consult was placed with Dr. Violeta Clements. Additionally, the patient's hydrochlorothiazide was discontinued due to very low p.o. intake of fluids. The patient had orthostatic vitals completed, which were positive: supine blood pressure 164/64, sitting blood pressure 119/55, and standing blood pressure 111/53. Throughout the night and the next morning, the patient stated that her dizziness had gotten progressively worse subjectively. Cardiology recommended starting lisinopril and discontinuing metoprolol for the indefinite future. Cardiology also noted that in November 2019, the patient did undergo a left common iliac stenting and left external iliac/SFA endarterectomy. Further monitoring of the heart rate revealed that the patient's heart rate continued to be in the upper 50s and low 60s. This was well above the initial heart rate in the ER, which was in the 40s. Because of the patient's heart rate was holding in the 50s to 60s with holding metoprolol, it was determined that the patient does not need a pacemaker at this time. By the morning of March 12, 2020, the patient was feeling much better and her dizziness had completely resolved. She did have a stress test completed on March 13, [address] Clements, this was normal. The patient was then cleared by Cardiology at that time and was instructed to have outpatient followup. Of note, the patient's blood sugars during the stay were elevated in the 170s average with a max of 207. Her metformin was adjusted from 500 to 1000 mg daily. DISPOSITION: Stable. DISCHARGE INSTRUCTIONS: 1. Location: Home. 2. Diet: Heart healthy, low-sodium. 3. Activity: As tolerated. 4. Follow up with PCP, Dr. Brooks Francisco at [facility] in 3 to 5 days. 5. Follow up with Dr. Clements, Cardiology in 2 to 3 weeks. Job ID: [id number]
== END 2020-03-13 17:57 | disposition home or self-care (01) | DRG 312 ==
LOC: ERS 14:48 → 2NO 17:12 → OBSVTOIN 03-12 21:23
PROVIDERS: ADMIT Family Medicine; ATTEND Family Medicine
DX: I95.1 Orthostatic hypotension (principal); R00.1 Bradycardia, unspecified; I25.10 Atherosclerotic heart disease of native coronary artery without angina pectoris; E11.51 Type 2 diabetes mellitus with diabetic peripheral angiopathy without gangrene; F32.9 Major depressive disorder, single episode, unspecified; J44.9 Chronic obstructive pulmonary disease, unspecified; E03.9 Hypothyroidism, unspecified; E78.5 Hyperlipidemia, unspecified; I65.22 Occlusion and stenosis of left carotid artery; I12.9 Hypertensive chronic kidney disease with stage 1 through stage 4 chronic kidney disease, or unspecified chronic kidney disease; E11.22 Type 2 diabetes mellitus with diabetic chronic kidney disease; N18.3 Chronic kidney disease, stage 3 (moderate); Z95.1 Presence of aortocoronary bypass graft; Z79.82 Long term (current) use of aspirin; Z79.890 Hormone replacement therapy; Z79.84 Long term (current) use of oral hypoglycemic drugs; Z79.899 Other long term (current) drug therapy; Z90.49 Acquired absence of other specified parts of digestive tract; Z87.891 Personal history of nicotine dependence
CPT/HCPCS: 36415; 36416; 71045; 78452; 80048; 80053; 82550; 83036; 83690; 83735; 84100; 84439; 84443; 84481; 84484; 85025; 93005; 93017; 93306; 94664; 94760; A9500; G0378; J1650; J2785